=== PATIENT | female | born 1995 | race Two or more races ===

== ENCOUNTER 2019-04-29 01:38 | Emergency (ER) | payer OTHER ==
[~2019-04-29] VITALS: Ht 170.2 cm; Wt 100.0 kg
[2019-04-29 04:30] VITALS: BP 118/76
== END 2019-04-29 04:57 | disposition home or self-care (01) ==
LOC: EMS 01:38
DX: S60.031A Contusion of right middle finger without damage to nail, initial encounter (principal); F12.90 Cannabis use, unspecified, uncomplicated; W23.0XXA Caught, crushed, jammed, or pinched between moving objects, initial encounter; Y93.89 Activity, other specified; Y92.89 Other specified places as the place of occurrence of the external cause; Y99.8 Other external cause status

== ENCOUNTER 2021-01-27 20:39 | Emergency (ER) | payer MEDICAID, OTHER ==
[~2021-01-27] VITALS: Ht 170.2 cm; Wt 100.0 kg
[2021-01-27] MEDS ORDERED: BACITRACIN 0.9 GM PACKET OINTMENT TP ONE (21:00)
[2021-01-27] MEDS ORDERED: DOXYCYCLINE HYCLATE 100 MG TABLET PO ONE (21:00)
[2021-01-27] MEDS ORDERED: ACETAMINOPHEN 500 MG TABLET PO ONE (21:00)
[2021-01-27 21:15] VITALS: BP 121/83
== END 2021-01-27 21:50 | disposition home or self-care (01) ==
LOC: EMS 20:49
DX: L03.011 Cellulitis of right finger (principal); M79.89 Other specified soft tissue disorders; F17.200 Nicotine dependence, unspecified, uncomplicated; F12.90 Cannabis use, unspecified, uncomplicated
CPT/HCPCS: 10060; 99283